=== PATIENT | female | born 2000 | race Two or more races ===

== ENCOUNTER 2021-03-05 09:08 | Emergency (ER) | payer OTHER ==
[2021-03-05] MEDS ORDERED: Boostrix 0.5 ML (Tdap) VIAL ONE (09:34)
[2021-03-05] MEDS ORDERED: Ketorolac Tromethamine 30 MG/ML VIAL ONE (09:38)
== END 2021-03-05 10:31 | disposition home or self-care (01) ==
LOC: ERS 09:08
DX: S63.602A Unspecified sprain of left thumb, initial encounter (principal); V86.99XA Unspecified occupant of other special all-terrain or other off-road motor vehicle injured in nontraffic accident, initial encounter
CPT/HCPCS: 90471; 90715; 96372; J1885